=== PATIENT | female | born 1930 | race Caucasian/White ===

== ENCOUNTER 2016-09-28 | Outpatient (CLI) | payer MEDICARE, OTHER | END 2016-09-28 14:01 | disposition home or self-care (01) ==

== ENCOUNTER 2016-12-19 14:30 | Outpatient (CLI) | payer MEDICARE, OTHER | END 2016-12-19 14:31 | disposition home or self-care (01) | DX: Z51.5 Encounter for palliative care (principal); M16.11 Unilateral primary osteoarthritis, right hip; F03.91 Unspecified dementia, unspecified severity, with behavioral disturbance; M62.81 Muscle weakness (generalized); R53.81 Other malaise; Z79.891 Long term (current) use of opiate analgesic; Z91.81 History of falling; Z66 Do not resuscitate; R32 Unspecified urinary incontinence; G62.9 Polyneuropathy, unspecified ==

== ENCOUNTER 2017-04-20 11:15 | Outpatient (CLI) | payer MEDICARE, OTHER ==
--- NOTE | 2017-04-20 21:19 | PROVIDER PROGRESS NOTE ---
Palliative Care Follow Up - Referral Referring Provider: Dr. Kuldeep Villar Time of Visit: 11:15-11:45 Referral setting: Home (Patient is seen in her home setting secondary to it is a taxing and considerable effort to leave the home related to her dementia, agrophobia, and right hip pain) Referral Reason: Dementia with behavioral disturbances - Information Sources History obtained from: Patient, Family (daughter Tammy) Exam limitations: Clinical condition (patient with severe dementia, confabulates and no STM) - History of Present Illness Update Brief HPI Update: This is an 86-year-old woman with progressive severe dementia with ongoing behavioral disturbances, her dementia is noted to be vascular in origin. Her neuropsychiatric behaviors include irritability, paranoia, and agitation, as well as often being uncooperative and caregiving tasks. She is managed on Seroquel 25 mg 1 tab in the a.m. and 1 tab in the evening with a half a tab added every other evening. Her daughter does use the lorazepam 0.5 mg for breakthrough agitation and uses this about twice a week. She also has long- standing degenerative joint disease, resulted in severe pain a bone on bone in her right hip, for which she is managed with her fentanyl 12 mcg patch. She uses oxycodone 5 mg for breakthrough pain about 2 times a week. She is continued to maintain her weight, has had no further falls, and spends a majority of her time in her hospital bed. She is able to ambulate short distances with her walker, and does spend some time in her living room recliner. She herself denies depression, anxiety, or constipation. He does have some delusions, as she perceives her daughter is still in school, and that she continues to work in the garden. Social History - Living Situation Living arrangement: At home Living Situation: With family (her daughter is her interactive multimedia designer caregiver, she has two times a week she gets a break, the long term acute care registered nurse care insurance has since run out. Patient's sister Yaneth manages finances and care needs from [facility]. Daughter would very much like a respite break, but minimal other resources to access) Medications/Allergies - Medications Home Medications: Ambulatory Orders Medication Instructions Recorded Confirmed LORazepam [Ativan] 0.5 mg ORAL Q6HR PRN 04/01/16 Levothyroxine [Synthroid] 50 mg ORAL 04/01/16 QUEtiapine [SEROquel] 1 tab ORAL BID 04/01/16 04/20/17 Acetaminophen 650 mg PO Q6HR PRN 04/20/17 04/20/17 Celecoxib [Celebrex] 200 mg PO DAILY 04/20/17 04/20/17 Cholecalciferol (Vitamin D3) 2,000 unit PO DAILY 04/20/17 04/20/17 [Vitamin D3] Docusate Sodium 100 mg PO BID 04/20/17 04/20/17 Metoprolol Tartrate 12.5 mg PO BID 04/20/17 04/20/17 Multivitamin Gummy 1 tab PO DAILY 04/20/17 fentaNYL 12 MCG PATCH [Duragesic 12 mcg TOP DAILY 04/20/17 04/20/17 12mcg patch] oxyCODONE [Roxicodone] 5 mg PO Q6HR PRN 04/20/17 04/20/17 - Allergies Allergies/Adverse Reactions: Allergies Allergy/AdvReac Type Severity Reaction Status Date / Time iodine Allergy Unknown Unknown Verified 04/20/17 21:38 Review of Systems - Constitutional Constitutional: reports: Fatigue, Weakness - Eyes Eyes: reports: Vision loss - Ears, Nose & Throat Ears, Nose & Throat: reports: Hearing loss - Cardiovascular Cariovascular: reports: Decr. exercise tolerance. denies: Palpitations, Chest pain, Orthopnea - Respiratory Respiratory: reports: SOB with exertion. denies: Cough, SOB at rest - Gastrointestinal Gastrointestinal: denies: Abdominal pain, Constipation, Nausea, Reflux/heartburn - Genitourinary Genitourinary: reports: Incontinence - Musculoskeletal Musculoskeletal: reports: Stiffness, Limited range of motion (right hip), Muscle weakness - Integumentary Integumentary: reports: Dryness - Neurological Neurological: reports: General weakness, Memory problems, Abnormal gait - Psychiatric Psychiatric: reports: Delusions, Other (irritability; agitation;) - Endocrine Endocrine: reports: Other (hypothyroidism) - Hematologic/Lymphatic Hematologic/Lymphatic: denies: Recurrent infections - All Other Systems All Other Systems: reports: Reviewed and negative Physical Examination - Vital Signs Temperature: 98 C Pulse Rate: 74 Respiratory Rate: 18 O2 Saturation: 95 (ra at rest) Blood Pressure: 102/64 - Physical Exam General Appearance: positive: No acute distress Eyes Bilateral: positive: Normal inspection ENT: positive: No signs of dehydration Neck: positive: No JVD, Trachea midline Respiratory: positive: Breath sounds nml (diminished left lower lobe) Cardiovascular: positive: Regular rate & rhythm Abdomen: positive: Non-tender, Nml bowel sounds, No distention Skin: positive: Pallor, Dryness, Other (long toe nails). negative: Rash Extremities: positive: No pedal edema Neurologic/Psychiatric: positive: Mood/affect nml, Disoriented to time, Weakness (able to speak in full sentences; confabulated activities; STM poor recall; very much into social graces) Palliative Care - POLST Patient has POLST: Yes POLST Status: DNR, Comfort Measures Pain: Pain unchanged, Location (right hip; managed with current regimen) Drowsiness: Moderate (4-6) (sleeping more during the day; sleeps through night; not distressed) Nausea: None Anxiety: None, Comment (ezer reports days agitation and "mean" and uncooperative; redirects or leaves and comes back; sometimes will need to premedicate with lorazepam for new caregivers to not be "fired") Dyspnea: Mild (1-3) (with activity only) Anorexia: None Insomnia: Sleeps well Constipation: No, Opoid induced, Managed Feelings of wellbeing/Perceived Quality of Life: Comment (patient perceives thing arae "just fine") Performance Status: patient continues to refuse bathing; Tammy will give her spit bath every three days with patch change; patient washes "privates" Tammy attempts to wash regularly. Patient will often refuse to change depends, but is at least wearing them now which is improvement - Palliative Care Discussion: Surrogate decision maker- Yaneth Arthur (twin sister) [phone]. POLST completed with sister, in home on counter. Tammy is day to day decision maker for care. Discussed with daughter patient's current condition, she does appear somewhat stable, no further falls, weight loss, though there is some noted functional decline. Reviewed and preparing for the next phase, patient could have extended life expectancy of months to years, but with her advanced age and comorbidities still at risk for an acute event particularly if she has a severe fall. Currently, I can feel things are going fairly well, she would like some more rested, but is committed to keeping her mother at home per her mother's wishes. Did encourage, for her to come with some plan B., if she were to have herself health event or unable to continue with caregiving duties. Impression and Recommendations - Palliative Care Impression: This is an 86-year-old woman with severe vascular dementia, ongoing behavioral disturbances with irritability, paranoia, intermittent confusion and mood lability. She is currently managed on her regimen with minimal need for breakthrough medications, and no updates to care plan made. Her right hip pain is well controlled on that and all Celebrex and her oxycodone for breakthrough pain. Her current caregiving situation, though stressful for her daughter, is meeting the needs for both the daughter and the patient. Recommendations/Counseling Done: 1. Dementia with behavioral disturbances. Counseling to daughter regarding anticipatory guidance of disease process, management of behaviors, review of current regimen, agreed no changes needed at this time. 2. Right hip pain secondary to severe DJD. Currently managed to both patient and daughters satisfaction, new Rx for Fentanyl 12 mcg patches, and oxycodone 5 mg # 60 tab provided. 3. Advanced care planning. Daughter declined further need to meet with [facility] currently, will call if needed. Does admit does not have a plan if something were to happen to her as CG, encouraged to talk to Yaneth about this. POLST in place, goal defined to keep patient in home setting for as long as possible. Time Spent: Time spent 30 minutes with greater than 50% done in counseling on opioid/ dementia symtpoms and anticipatory guidance.
== END 2017-04-20 11:16 | disposition home or self-care (01) ==
LOC: PC 11:15
PROVIDERS: ATTEND Nurse Practitioner Adult Health
DX: Z51.5 Encounter for palliative care (principal); F01.51 Vascular dementia, unspecified severity, with behavioral disturbance; M16.11 Unilateral primary osteoarthritis, right hip; F40.00 Agoraphobia, unspecified; Z79.891 Long term (current) use of opiate analgesic; Z66 Do not resuscitate; Z91.81 History of falling; Z79.1 Long term (current) use of non-steroidal anti-inflammatories (NSAID)
CPT/HCPCS: 99348

== ENCOUNTER 2017-07-26 17:25 | Outpatient (CLI) | payer MEDICARE, OTHER ==
--- NOTE | 2017-07-26 17:30 | CONSULTATION NOTE ---
Palliative Care Follow Up - Referral Referring Provider: Kuldeep Villar MD Time of Visit: 3729-1826 Referral setting: Home Referral Reason: Dementia with behavioral disturbances - Information Sources History/Review of Systems obtained from: Family (daughter Tammy) Exam limitations: Clinical condition - History of Present Illness Update Brief HPI Update: This is a 86-year-old woman with progressive severe dementia with ongoing behavioral disturbances, her dementia is noted to be vascular in origin. She does have neuropsychiatric behaviors including irritability, paranoia, delusions , and agitation. She has continued to have functional decline, is spending more time in bed, though has no obvious weight loss. Her daughter Tammy, is her main caregiver. She uses Lorazepam 0.5 mg for breakthrough agitation usually about 2-3 times a week. She also has long-standing severe degenerative joint disease with severe pain in her right hip [id number], which is managed with fentanyl 12 mcg patch. She continues to maintain her weight, has had no falls, does does spend majority of her time in her hospital bed. She has had no skin breakdown. She is still able to ambulate short distances with her walker. She herself denies depression and/or anxiety. She does present with delusions that she perceives her self as working in the yard, fixing meals, and decorating the house for [employer]. Social History - Living Situation Living arrangement: At home (Tammy her daughter is her main caregiver. Her oversight is her patient's sister Yaneth. I am she has gotten some caregiving relief with a friend, and was able to take her car trip. Finances continue to be quite stressful as far as being able to supplement respite for Tammy.) Living Situation: With family Medications/Allergies - Medications Home Medications: Ambulatory Orders Medication Instructions Recorded Confirmed LORazepam [Ativan] 0.5 mg ORAL Q6HR PRN 04/01/16 Levothyroxine [Synthroid] 50 mg ORAL 04/01/16 QUEtiapine [SEROquel] 25 mg ORAL BID 04/01/16 04/20/17 Acetaminophen 650 mg PO Q6HR PRN 04/20/17 04/20/17 Celecoxib [Celebrex] 200 mg PO DAILY 04/20/17 04/20/17 Cholecalciferol (Vitamin D3) 2,000 unit PO DAILY 04/20/17 04/20/17 [Vitamin D3] Docusate Sodium 100 mg PO BID 04/20/17 04/20/17 Metoprolol Tartrate 12.5 mg PO BID 04/20/17 04/20/17 Multivitamin Gummy 1 tab PO DAILY 04/20/17 fentaNYL 12 MCG PATCH [Duragesic 12 mcg TOP DAILY 04/20/17 04/20/17 12mcg patch] oxyCODONE [Roxicodone] 5 mg PO Q6HR PRN 04/20/17 04/20/17 - Allergies Allergies/Adverse Reactions: Allergies Allergy/AdvReac Type Severity Reaction Status Date / Time iodine Allergy Unknown Unknown Verified 04/20/17 21:38 Review of Systems - Constitutional Constitutional: reports: Fatigue, Other (unknown) - Eyes Eyes: reports: Vision loss - Ears, Nose & Throat Ears, Nose & Throat: reports: Hearing loss - Gastrointestinal Gastrointestinal: reports: Good appetite - Genitourinary Genitourinary: reports: Incontinence - Musculoskeletal Musculoskeletal: reports: Limited range of motion (left hip), Assistive devices (up for short distances with walker; spends most of time in bed) - Integumentary Integumentary: reports: Dryness - Neurological Neurological: reports: General weakness, Memory problems - Psychiatric Psychiatric: reports: Delusions, Behavior disturbances (can be very irritable and verbally abusive at times to daughter; noncooperative) - Endocrine Endocrine: reports: Intolerance to cold - Hematologic/Lymphatic Hematologic/Lymphatic: denies: Recurrent infections - All Other Systems All Other Systems: reports: Reviewed and negative Physical Exam - Vital Signs Pulse Rate: 60 Respiratory Rate: 18 Blood Pressure: 102/64 - Physical Exam General Appearance: positive: No acute distress, Lethargic Eyes Bilateral: positive: Normal inspection ENT: positive: No signs of dehydration Neck: positive: Trachea midline Cardiovascular: positive: Regular rate & rhythm Respiratory: positive: Breath sounds nml Abdomen: positive: Non-tender, Soft, Nml bowel sounds Skin: positive: Pallor, Dryness Extremities: positive: No pedal edema, Other (limited rom left hip) Neurologic/Psychiatric: positive: Mood/affect nml, Disoriented to person, Disoriented to place, Disoriented to time, Weakness, Slurred/abnml speech Palliative Care - POLST Patient has POLST: Yes POLST Status: DNR, Comfort Measures Pain: Pain unchanged, Location (left hip), Comment (some increase with weather changes;) Drowsiness/Sedation: Moderate (4-6) (sleeping more) Nausea: None Depression: None Anxiety: Mild (1-3) Dyspnea: None Anorexia: Mild (1-3) Sleep: Sleeps well Constipation: No, Managed Feelings of wellbeing/Perceived Quality of Life: Fair, Acceptable, No change Performance Status: Patient continues to refuse bathing, Tammy does give her spit bath every few days with patch change. Her support caregiver does have more success at times with personal care. They were able to cut her nails. Patient often will refuse to change depends, can be problematic particularly when she has been incontinent of bowel. She is walking from her bedroom to the bathroom, as well as to the living room with standby assist. - Palliative Care Discussion: Surrogate decision maker/JUNIOR MALHOTRA (twin sisters and ([phone]. [facility] [facility] is completed with DNAR and comfort measures only. Discussed with daughter current care plan, still want to try and keep patient at home, and patient does have episodes where her behavior is distressing for her daughter, but they do managed to redirect. Concerns continue regarding finances, that would be much more expensive to have patient placed. At this point in time Tammy is fine with current care plan and does not need further support. She does know the medical palliative care social media assistant is available if needed. She is managing to get to her orthodoxy group. Patient herself presents is quite cooperative today, she reports "I do as little as possible", "got it pretty easy", and "never been bored "and is seeming pretty content. Her care needs are being met, she has had no falls or infections. She does present as a FAST 6D. Impression and Recommendations - Palliative Care Impression: This is a 86-year-old woman with severe vascular dementia, ongoing behavioral disturbances with neuropsychiatric behaviors of irritability, paranoia, delusions, and mood lability. She is currently managed on her regimen with minimal need for breakthrough medications. No updates to care plan made. Her right hip pain is well controlled on fentanyl, Celebrex and her oxycodone for breakthrough pain. She is getting her care needs met, Tmamy still is committed to keeping her at home. Recommendations/Counseling Done: 1. Dementia with behavioral disturbances. Peroration currently managed on her regimen, counseling the daughter regarding anticipatory guidance, management of behaviors, review of current regimen and agreement no changes needed at this time. 2. Right hip pain secondary to severe [id number] DJD. Currently managed with fentanyl, Celebrex, breakthrough oxycodone. New Rx for fentanyl 12 mcg patches was provided. 3. Advanced care planning. Daughter currently feels patient's needs are being met, declines meet with [facility]. She is getting some respite from a friend. [facility] is in place and goals are defined is keeping patient at home and no further hospitalizations. When patient does have declined transitioning to hospice. Time Spent: 30 minutes with greater than 50% of this done in counseling regarding management of patient's neuropsychiatric behaviors, pain, and anticipatory guidance
== END 2017-07-26 17:26 | disposition home or self-care (01) ==
LOC: PC 17:25
PROVIDERS: ATTEND Nurse Practitioner Adult Health
DX: Z51.5 Encounter for palliative care (principal); M16.11 Unilateral primary osteoarthritis, right hip; M25.551 Pain in right hip; R45.1 Restlessness and agitation; F99 Mental disorder, not otherwise specified; F22 Delusional disorders; Z79.891 Long term (current) use of opiate analgesic; R32 Unspecified urinary incontinence; M62.81 Muscle weakness (generalized); Z66 Do not resuscitate
CPT/HCPCS: 99348

== ENCOUNTER 2017-09-26 08:00 | Outpatient (CLI) | payer MEDICARE, OTHER ==
[2017-09-26 18:59] LABS: BASOPHILS % (AUTO) 0.4 %; EOSINOPHILS # (AUTO) 0.1 10^3/uL (0.0-0.7); EOSINOPHILS % (AUTO) 2.1 %; HGB - HEMOGLOBIN 12.2 g/dL (12.0-16.0); LYMPHOCYTES # (AUTO) 1.7 10^3/uL (1.5-3.5); LYMPHOCYTES % (AUTO) 32.3 %; MEAN CORPUSCULAR HGB CONC 33.8 g/dL (32.0-36.0); MEAN CORPUSCULAR VOLUME 94.7 fL (81.0-99.0); MEAN PLATELET VOLUME 8.3 fL (7.9-10.8); MONOCYTES # (AUTO) 0.4 10^3/uL (0.0-1.0); MONOCYTES % (AUTO) 6.8 %; NEUTROPHILS # (AUTO) 3.1 10^3/uL (1.5-6.6); NEUTROPHILS % (AUTO) 58.4 %; PLT - PLATELET COUNT 191 10^3/uL (130-450); RED BLOOD COUNT 3.82 10^6/uL (4.20-5.40); RED CELL DISTRIBUTION WIDTH 12.9 % (12.0-15.0); WHITE BLOOD COUNT 5.3 x10^3/uL (4.8-10.8)
[2017-09-26 19:20] LABS: ALBUMIN 3.2 g/dL (3.2-5.5); ALBUMIN/GLOBULIN RATIO 1.3 (1.0-2.2); ALKALINE PHOSPHATASE 58 IU/L (42-121); ALT ALANINE AMINOTRANSFERASE < 10 IU/L (10-60); AST ASPARTATE AMINOTRANSFERASE 19 IU/L (10-42); BILIRUBIN,TOTAL 0.5 mg/dL (0.2-1.0); BUN - BLOOD UREA NITROGEN 16 mg/dL (6-20); CALCIUM 8.6 mg/dL (8.5-10.3); CARBON DIOXIDE - CO2 25 mmol/L (21-32); CHLORIDE 105 mmol/L (101-111); CREATININE 0.7 mg/dL (0.4-1.0); GFR - MDRD 79 (>89); GLUCOSE 89 mg/dL (70-100); SODIUM 139 mmol/L (135-145); TOTAL PROTEIN 5.6 g/dL (6.7-8.2)
[2017-09-26 19:27] LABS: T4 (THYROXINE) 6.59 ug/dL (6.09-12.23)
[2017-09-26 19:31] LABS: THYROID STIMULATING HORMONE 1.79 uIU/mL (0.34-5.60)
== END 2017-09-26 08:01 | disposition home or self-care (01) ==
LOC: LAB.R 08:00
PROVIDERS: ATTEND Nurse Practitioner Adult Health
DX: E03.9 Hypothyroidism, unspecified (principal); Z79.899 Other long term (current) drug therapy
CPT/HCPCS: 80053; 84436; 84443; 85025

== ENCOUNTER 2017-09-26 13:00 | Outpatient (CLI) | payer MEDICARE, OTHER ==
--- NOTE | 2017-09-27 14:11 | CONSULTATION NOTE ---
Palliative Care Follow Up - Referral Referring Provider: Dr. Get Villar Time of Visit: [id number] Referral setting: Home (Patient seen her home setting secondary considerable and taxing effort to leave the home, patient has severe dementia and is homebound.) Referral Reason: Dementia with behavioral disturbances - Information Sources Records reviewed: Previous records reviewed History/Review of Systems obtained from: Family (Daughter Tammy providing most of the history including ROS) Exam limitations: Clinical condition (Patient demented, confabulates, is unable to participate in exam.) - History of Present Illness Update Brief HPI Update: This is an 87-year-old woman with progressive severe dementia with ongoing behavioral disturbances, her dementia is noted to be vascular in origin. She does have neuropsychiatric behaviors including irritability, paranoia, delusions , and agitation. She does continue to have functional decline, she is eating and drinking and there is no discernible weight loss, she does sleep more than she has in the past. She also has long-standing severe degenerative joint disease with severe pain in her right hip, with [id number] which is managed with fentanyl 12 mcg patch. She has had not any further falls, there was a call last month with concern for dark stools, this is since resolved. Patient presents with no skin breakdown, and has avoided any flu or colds. Daughter reports using the Lorazepam for breakthrough agitation, she is on baseline Seroquel. She is reporting needing to use that several times a week, but is effective intervention. Social History - Living Situation Living arrangement: At home Living Situation: With family (Daughter Tammy is her caregiver, she does have a live-in friend who is now assisting with her care, this does help in patients behaviors escalate. Patient's sister is her DPO a, and manages finances.) Medications/Allergies - Medications Home Medications: Ambulatory Orders Medication Instructions Recorded Confirmed LORazepam [Ativan] 0.5 mg ORAL Q6HR PRN 04/01/16 Levothyroxine [Synthroid] 50 mg ORAL 04/01/16 QUEtiapine [SEROquel] 25 mg ORAL QDBREAKFAST 04/01/16 09/27/17 Acetaminophen 650 mg PO Q6HR PRN 04/20/17 04/20/17 Celecoxib [Celebrex] 200 mg PO DAILY 04/20/17 04/20/17 Cholecalciferol (Vitamin D3) 2,000 unit PO DAILY 04/20/17 04/20/17 [Vitamin D3] Docusate Sodium 100 mg PO BID 04/20/17 04/20/17 Metoprolol Tartrate 12.5 mg PO BID 04/20/17 09/27/17 Multivitamin Gummy 1 tab PO DAILY 04/20/17 09/27/17 fentaNYL 12 MCG PATCH [Duragesic 12 mcg TOP DAILY 04/20/17 09/27/17 12mcg patch] oxyCODONE [Roxicodone] 5 mg PO Q6HR PRN 04/20/17 09/27/17 Mecobalamin [B-12] 1 tab PO DAILY 09/27/17 09/27/17 Polyethylene Glycol 3350 [Miralax] 8.5 gm PO DAILY 09/27/17 09/27/17 QUEtiapine [SEROquel] 37.5 mg PO ACHS 09/27/17 09/27/17 - Allergies Allergies/Adverse Reactions: Allergies Allergy/AdvReac Type Severity Reaction Status Date / Time iodine Allergy Unknown Unknown Verified 04/20/17 21:38 Review of Systems - Constitutional Constitutional: reports: Fatigue (sleeping more about 75% of day), Weakness, Weight stable - Eyes Eyes: reports: Vision loss - Ears, Nose & Throat Ears, Nose & Throat: reports: Hearing loss, Sore throat (c/o to daughter earlier today; denied at visit) - Cardiovascular Cardiovascular: reports: Decr. exercise tolerance. denies: Chest pain - Respiratory Respiratory: denies: Cough - Gastrointestinal Gastrointestinal: reports: Constipation (controlled on current regimen), Good appetite. denies: Reflux/heartburn - Genitourinary Genitourinary: reports: Incontinence - Musculoskeletal Musculoskeletal: reports: Limited range of motion (right hip; still ambulating short distances to BR), Assistive devices (uses rolling 4WW) - Integumentary Integumentary: reports: Dryness - Neurological Neurological: reports: General weakness, Memory problems (confabulates; not orientated; sometimes does not recognize daughter) - Psychiatric Psychiatric: reports: Depression, Delusions, Behavior disturbances - Endocrine Endocrine: reports: Hypothyroidism, Intolerance to cold - Hematologic/Lymphatic Hematologic/Lymphatic: denies: Recurrent infections - All Other Systems All Other Systems: reports: Reviewed and negative Physical Exam - Vital Signs Temperature: 97.8 C Pulse Rate: 72 Respiratory Rate: 18 O2 Saturation: 98 (ra @ rest) Blood Pressure: 92/62 - Physical Exam General Appearance: positive: No acute distress, Lethargic (had received lorazepam earlier for bathing) Eyes Bilateral: positive: Normal inspection ENT: positive: No signs of dehydration Neck: positive: No JVD, Trachea midline Cardiovascular: positive: Regular rate & rhythm Respiratory: positive: Breath sounds nml, Diminished in bases Abdomen: positive: Non-tender, Soft, Nml bowel sounds Skin: positive: Pallor, Bruising (left back of hand) Neurologic/Psychiatric: positive: Mood/affect nml, Disoriented to person, Disoriented to place, Disoriented to time, Weakness Palliative Care - POLST Patient has POLST: Yes POLST Status: DNR, Comfort Measures Pain: Location (Pain in right hip, unable to quantify from patient. She reports it does worsen with the weather changes. It does limit her ambulation.) Constipation: Yes, Opoid induced, Managed Performance Status: Patient spends majority of her time in her hospital bed, she does ambulate out to the living room at times. She is still able to self feed, the daughter and her friend to try and bathe her at least weekly, patient gets quite irritable and agitated with bathing - Palliative Care Discussion: Reviewed goals of care with daughter Tammy, she does feel like they are currently coping though she does have days which makes it very difficult with her behavioral disturbances. The goal is still to keep her at home, she has had some caregiver relief with her friends staying. She is trying to take care of herself. Patient has had some decline but nothing significant. Results - Lab Results Lab and Imaging Results: Labs drawn for hypothyroidism, CBC and CMP in left antecubital without difficulty.[facility] [place] Findings within normal limits; no changes made to medications, follow up with daughter done. Impression and Recommendations - Palliative Care Impression: This is an 87-year-old woman with severe vascular dementia, ongoing behavioral disturbances with neuropsychiatric behaviors of irritability, paranoia, delusions, and mood lability. She is currently managed on her regimen to daughter's satisfaction. Patient has had some decline, her daughter is doing a nice job of caring for her. Patient refuses to leave the home, so we will continue to provide palliative care support every 2-3 months. Recommendations/Counseling Done: 1. Dementia with behavioral disturbances. Patient currently managed on her regimen, continue to primary counselor daughter with anticipatory guidance, management of behaviors, review of current regimen and agreement no changes needed at this time. 2. Right hip pain secondary severe [id number] DJD. Currently managed with fentanyl 12 mcg, Celebrex 200 mg, and oxycodone for breakthrough medication. The only needing this a couple times a month. New Rx versus fentanyl 12 mcg patches was provided. 3. Advanced care planning.Tammy does present with caregiver fatigue, but she is getting some support from her current roommate. At this point in time there are no placement issues. [facility] is in place and goals are defined is keeping patient at home and no further hospitalizations, with transition to hospice when appropriate Time Spent: 30 minutes with greater than 50% of this done in counseling regarding symptom management, lab draw done [facility], and anticipatory guidance provided
== END 2017-09-26 13:01 | disposition home or self-care (01) ==
LOC: PC 13:00
PROVIDERS: ATTEND Nurse Practitioner Adult Health
DX: Z51.5 Encounter for palliative care (principal); F01.51 Vascular dementia, unspecified severity, with behavioral disturbance; M25.551 Pain in right hip; M16.11 Unilateral primary osteoarthritis, right hip; R45.4 Irritability and anger; F22 Delusional disorders; R45.1 Restlessness and agitation; Z79.891 Long term (current) use of opiate analgesic; R53.83 Other fatigue; M62.81 Muscle weakness (generalized); K59.03 Drug induced constipation; T40.2X5D Adverse effect of other opioids, subsequent encounter; Z66 Do not resuscitate
CPT/HCPCS: 99348

== ENCOUNTER 2017-12-12 12:55 | Outpatient (CLI) | payer MEDICARE, OTHER ==
--- NOTE | 2017-12-12 20:48 | CONSULTATION NOTE ---
Palliative Care Follow Up - Referral Referring Provider: Dr. Kuldeep Villar Time of Visit: [id number] Referral setting: Home (It is a taxing and considerable effort for the patient to leave the home, secondary to dementia and fatigue) Referral Reason: Dementia with behavioral disturbances/Failure to thrive - Information Sources Records reviewed: Previous records reviewed History/Review of Systems obtained from: Family (Tammy daughter and caregiver present; Manasa friend and support caregiver present at visit) Exam limitations: Clinical condition (patient confabulates; severe dementia) - History of Present Illness Update Brief HPI Update: This is a 87-year-old woman with progressive severe dementia and ongoing behavioral disturbances, dementia is noted to be vascular in origin. She does have neuropsychiatric behaviors including irritability, paranoia, delusions, and agitation. She does continue to have functional decline, is spending much more time in bed, up only occasionally to the bathroom with needing more assistance from sitting to standing, more sedentary and sleeping more overall. She is also had a decrease in oral intake over the last several weeks, not attributed to anything acute, has no fever chills, no signs or symptoms of urinary tract infection, no cough or signs of pneumonia. This is exhibited less interest, are managing to get a couple of boosted her, but does have discernible weight loss with temporal wasting, upper extremity wasting, and thinner through the abdomen. 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 She does have oxycodone 5 mg for breakthrough pain as needed, as she has been more bedbound, she has been more stiff and with discomfort but not needing significant amount of more pain medication. Her agitation is fairly well-controlled on the Seroquel, she only needs occasional Lorazepam, they have been able to manage with just reapproach and distraction for periods of agitation. Patient is quite cooperative, does appear to recognize me, though does not understand the context for which I am visiting. She does confabulate, talks about working, time spent in the garden, and being up and around. Social History - Living Situation Living arrangement: At home Living Situation: With family (Patient is cared for by her daughter Tammy, she is cared for her since 2010, has lived with her since 2011. She does have a friend Manasa, who is now living at the house which has helped immensely. Check his training is in caregiving, and has done a significant amount dementia care. She is providing care shifts Monday, and has been of big support for daughter as well as someone to problem solve with regarding behaviors.) Medications/Allergies - Medications Home Medications: Ambulatory Orders Medication Instructions Recorded Confirmed LORazepam [Ativan] 0.5 mg ORAL Q6HR PRN 04/01/16 12/12/17 Levothyroxine [Synthroid] 50 mg ORAL 04/01/16 QUEtiapine [SEROquel] 25 mg ORAL QDBREAKFAST 04/01/16 12/12/17 Celecoxib [Celebrex] 200 mg PO DAILY 04/20/17 12/12/17 Cholecalciferol (Vitamin D3) 2,000 unit PO DAILY 04/20/17 12/12/17 [Vitamin D3] Metoprolol Tartrate 12.5 mg PO DAILY 04/20/17 12/12/17 Multivitamin Gummy 1 tab PO DAILY 04/20/17 12/12/17 fentaNYL 12 MCG PATCH [Duragesic 12 mcg TOP DAILY 04/20/17 12/12/17 12mcg patch] oxyCODONE [Roxicodone] 5 mg PO Q6HR PRN 04/20/17 12/12/17 Mecobalamin [B-12] 1 tab PO DAILY 09/27/17 12/12/17 Polyethylene Glycol 3350 [Miralax] 8.5 gm PO DAILY 09/27/17 12/12/17 QUEtiapine [SEROquel] 37.5 mg PO ACHS 09/27/17 12/12/17 - Allergies Allergies/Adverse Reactions: Allergies Allergy/AdvReac Type Severity Reaction Status Date / Time iodine Allergy Unknown Unknown Verified 04/20/17 21:38 Review of Systems - Constitutional Constitutional: reports: Fatigue (sleeping more; spendsmost of time in bed), Poor appetite, Weight loss (no weights; temporal wasting; upper extremity thinner) - Eyes Eyes: reports: Vision loss - Ears, Nose & Throat Ears, Nose & Throat: reports: Hearing loss (mild) - Cardiovascular Cardiovascular: reports: Decr. exercise tolerance - Gastrointestinal Gastrointestinal: reports: Poor appetite, Early satiety. denies: Constipation - Genitourinary Genitourinary: reports: Incontinence - Musculoskeletal Musculoskeletal: reports: Joint pain (right hip severe DJD), Assistive devices ( only up about once a day with walker) - Integumentary Integumentary: reports: Dryness - Neurological Neurological: reports: General weakness, Memory problems (patient with STM issues; more confused; confabulates; less full sentences but quite social in her exchange) - Psychiatric Psychiatric: reports: Behavior disturbances (Daughter reports mood fluctuates; can be cooperative but also resistant to care and agitated) - Endocrine Endocrine: reports: Hypothyroidism - Hematologic/Lymphatic Hematologic/Lymphatic: denies: Recurrent infections - All Other Systems All Other Systems: reports: Reviewed and negative Physical Exam - Vital Signs Temperature: 97.3 C Pulse Rate: 100 Respiratory Rate: 18 O2 Saturation: 92 (ra @ rest) Blood Pressure: 94/62 - Physical Exam General Appearance: positive: No acute distress, Alert Eyes Bilateral: positive: Normal inspection, Other (small amount of discharge right eye; no redness) ENT: positive: No signs of dehydration Neck: positive: Nml inspection Cardiovascular: positive: Regular rate & rhythm Respiratory: positive: Breath sounds nml Abdomen: positive: Non-tender, Soft, Nml bowel sounds Skin: positive: Pallor. negative: Bruising, Pressure wound Extremities: positive: No pedal edema, Other (difficult getting from sitting to standing; max assist; able to ambulate few steps with waler and cueing) Neurologic/Psychiatric: positive: Disoriented to person, Disoriented to place, Disoriented to time, Weakness Palliative Care - POLST Patient has POLST: Yes POLST Status: DNR, Comfort Measures Pain: Pain unchanged, Location (right hip; fentanyl 12 mcg every 3 days; seldom needing breakthrough oxycodone) Sleep: Sleeps well Constipation: Yes, Opoid induced, Managed Feelings of wellbeing/Perceived Quality of Life: Fair, Worsening Performance Status: Patient is mostly bedbound, now really comes out to the living room to sit. She occasionally ambulates to the bathroom, she is bed bath now with assistance of caregiver. They were able to take her to a walk-in tub a couple times to be able to wash her hair. She is still able to self feed, no signs of choking or difficulty swallowing, but dislikes taking pills. I would put her at a PPS of 40 % - Palliative Care Discussion: Daughter concerned regarding ongoing decline of both functional and decreased intake. No acute signs or symptoms of infection, no recent falls, does appear to have weight loss, and may be mildly dehydrated. Counseling and anticipatory guidance given regarding the trajectory of the disease, expected continued decline, and reviewed and reiterated goals on comfort. Patient without any skin breakdown, is receiving excellent care, reassurance was provided. Counseling provided regarding the continuum of care, including the criteria for hospice, discussed patient could be within weeks or possibly even months, but continued to evaluate and simplify caregiving tasks. Patient's DPOAE is actually her sister CASSIUS Wolfe in home with D and a R and comfort measures. Impression and Recommendations - Palliative Care Impression: This is an 87-year-old woman with severe vascular dementia, ongoing behavioral disturbances, mitigated with the use of Seroquel. Patient has continued to have decline, now presenting with symptoms of weight loss, decreased intake, but no acute signs or symptoms of infection, falls, or skin breakdown. She is well cared for by her daughter. Palliative care to provide ongoing support until transition to hospice. Recommendations/Counseling Done: 1. Hypertension. Patient on metoprolol tartrate 12.5 mg twice daily, has missed multiple doses as holds for blood pressure less than 110, instructed to give daily in a.m. only for rate control, no further BPs to simplify caregiving and decrease patient irritation. If patient presents with dizziness are of concern and hold dosing. 2. Dementia with behavioral distress disturbances. Reviewed current behaviors and schedule, will continue with current regimen, no changes at this time. Counseling provided and reinforced behavioral approaches used in managing agitation/care resistance. 3. Right hip pain secondary severe [id number] DJD. Currently managed with fentanyl 12 mcg patch, Celebrex 200 mg daily, and oxycodone for breakthrough pain. Appears to be controlling pain at this point in time. No adjustments needed 4. Advanced care planning. Tammy is doing better with increased support from roommate Manasa, at this point in time no plans for placement. CASSIUS GOODEN in place , left message for DPO a regarding wanting to update karen who is her twin sister. Anticipatory guidance and counseling provided regarding threshold for transition to hospice, as well as goals of care. Time Spent: 45 minutes with greater than 50% of this done in counseling pituitary guidance, review of pain and symptom management. Addendum. Did speak with Karen LAURA [phone], [place]'s twin sister. Did give her an update of patient's ongoing decline, observations of her care, and plan at appropriate transition point to move on to hospice. She is in agreement with this. Karen herself, is of course her same age, and is hoping she will outlast her sister to be able to provide support and oversee her care.
== END 2017-12-12 12:56 | disposition home or self-care (01) ==
LOC: PC 12:55
PROVIDERS: ATTEND Nurse Practitioner Adult Health
DX: Z51.5 Encounter for palliative care (principal); I10 Essential (primary) hypertension; F01.51 Vascular dementia, unspecified severity, with behavioral disturbance; M16.11 Unilateral primary osteoarthritis, right hip; R62.7 Adult failure to thrive; Z79.891 Long term (current) use of opiate analgesic; M62.81 Muscle weakness (generalized); K59.03 Drug induced constipation; T40.2X5D Adverse effect of other opioids, subsequent encounter; Z66 Do not resuscitate
CPT/HCPCS: 99350

== ENCOUNTER 2018-01-01 13:10 | Outpatient (CLI) | payer MEDICARE, OTHER ==
--- NOTE | 2018-01-01 17:57 | CONSULTATION NOTE ---
Palliative Care Follow Up - Referral Referring Provider: Dr Kuldeep Garcia Time of Visit: 01/01/2018. 13:10 13:55 Referral setting: Home (Seen in home setting due to taxing and considerable effort required to leave the home due to dementia, fatigue and bed bound status. ) Referral Reason: Declining status, anorexia - Information Sources Records reviewed: Previous records reviewed History/Review of Systems obtained from: Patient, Family, Caregiver Exam limitations: Clinical condition (patient confabulates; severe dementia) - History of Present Illness Update Brief HPI Update: -87-year-old woman with progressive severe dementia and ongoing behavioral disturbances, dementia is vascular. -Neuropsychiatric behaviors include irritability, paranoia, delusions, and agitation. 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 -She continues to experience quite significant functional decline since previous palliative care visit 3 weeks ago. -She eats only a bite or two of food (melon, berries, yogurt), supplemented by Boost. -She is still able to drink fluids from a straw -- juices, water. -She is completely bed-bound, is unable to bear any weight and is no longer ambulatory, recently collapsed when attempting to get out of bed independently. -Most of her time is spent sleeping in a " position." She resists waking up. -New incontinence of bowel for the past several weeks. -No pressure wounds reported by daughter Tammy and Manasa, both of whom have personal and semi-professional experience as care givers. -Complains of chronic pain in hip, continues on 12mcg fentanyl patch, no longer using Celebrex because she can't swallow the pill. She uses oxycodone 5mg twice daily for breakthrough pain. -Hospice meets with goals of family: comfort and quality of life. Social History - Living Situation Living arrangement: At home Support System: Lives with daughter Tammy. Manasa, a non-family member, has been helping with caregiving. A 3rd caregiver, Hilaria, 72 years old, will also be helping out with caregiving, occasionally spending the night. Her twin sister, Yaneth, is her DPOA. She lives in [place]. Medications/Allergies - Medications Home Medications: Ambulatory Orders Medication Instructions Recorded Confirmed LORazepam [Ativan] 0.5 mg ORAL Q6HR PRN 04/01/16 12/12/17 Levothyroxine [Synthroid] 50 mg ORAL 04/01/16 QUEtiapine [SEROquel] 25 mg ORAL QDBREAKFAST 04/01/16 12/12/17 Celecoxib [Celebrex] 200 mg PO DAILY 04/20/17 12/12/17 Cholecalciferol (Vitamin D3) 2,000 unit PO DAILY 04/20/17 12/12/17 [Vitamin D3] Metoprolol Tartrate 12.5 mg PO DAILY 04/20/17 12/12/17 Multivitamin Gummy 1 tab PO DAILY 04/20/17 12/12/17 fentaNYL 12 MCG PATCH [Duragesic 12 mcg TOP DAILY 04/20/17 12/12/17 12mcg patch] oxyCODONE [Roxicodone] 5 mg PO Q6HR PRN 04/20/17 12/12/17 Mecobalamin [B-12] 1 tab PO DAILY 09/27/17 12/12/17 Polyethylene Glycol 3350 [Miralax] 8.5 gm PO DAILY 09/27/17 12/12/17 QUEtiapine [SEROquel] 37.5 mg PO ACHS 09/27/17 12/12/17 - Allergies Allergies/Adverse Reactions: Allergies Allergy/AdvReac Type Severity Reaction Status Date / Time iodine Allergy Unknown Unknown Verified 04/20/17 21:38 Review of Systems - Constitutional Constitutional: reports: Fatigue, Weakness, Poor appetite, Weight loss (no weights; temporal wasting; thin upper extremities (25cm L bicep), hips and buttocks bonier per caregiver report.) - Eyes Eyes: reports: Vision loss - Ears, Nose & Throat Ears, Nose & Throat: reports: Hearing loss, Postnasal drainage - Cardiovascular Cardiovascular: reports: Decr. exercise tolerance - Respiratory Respiratory: reports: Sputum production. denies: SOB at rest - Gastrointestinal Gastrointestinal: reports: Poor appetite, Early satiety, Other (incontinence of bowel). denies: Constipation - Genitourinary Genitourinary: reports: Incontinence - Musculoskeletal Musculoskeletal: reports: Stiffness, Muscle weakness, Joint pain (DGD R hip), Transfer issues - Neurological Neurological: reports: Memory problems (short term memory deficits) - Psychiatric Psychiatric: reports: Aggitation, Behavior disturbances - All Other Systems All Other Systems: reports: Reviewed and negative Physical Exam - Vital Signs Temperature: 96.8 F Pulse Rate: 92 O2 Saturation: 94 (room air) Blood Pressure: 100/60 - Physical Exam General Appearance: positive: No acute distress, Alert Eyes Bilateral: positive: No lid inflammation, Conjunctivae nml ENT: positive: No signs of dehydration Neck: positive: Trachea midline Cardiovascular: positive: Regular rate & rhythm Respiratory: positive: Chest non-tender, No respiratory distress, Other ( refused auscultation of lungs). negative: Wheezes Skin: positive: Pallor Extremities: positive: No pedal edema Neurologic/Psychiatric: positive: Disoriented to time, Weakness (bedbound) Palliative Care - POLST Patient has POLST: Yes POLST Status: DNR, Comfort Measures Pain: Pain unchanged Tiredness/Fatigue: Severe (7-10) Anorexia: Severe (7-10), Weight loss (no weights available) Performance Status: Steady decline for months with significant acceleration of decline in past 3 weeks. No longer weight bearing or ambulatory, she remains bedbound, sleeps most of the time, failure to thrive with severe anorexia and weight loss. FAST: 7c - Palliative Care Discussion: Tammy her daughter, and Manasa the other caregiver have noted significant decline in the past several weeks, and request Hospice support. There will be three of them (Hilaria, 72 years old will join them) to share care giving duties. Patient is eating very little, continues to lose weight, appetite and functionality. I spoke with the patient's twin sister on the phone, who is also her DPOA. She is in agreement to transition her to hospice and wants to visit her within the next week or two. She lives in [place] and needs to make arrangements for a friend or family member to drive her here. She asked how long the patient has; my estimate is weeks to months. Daughter Tammy expressed her opinion that giving morphine to hospice patients hastens . I provided education about this incorrect assumption and the usages of morphine for relief of end of life pain, agitation, SOA. Both patient and caregiver/friend Manasa express Jewish beliefs and values, and state they will pray about certain decisions and choices. They both have past experience with having had family members on Hospice, and it appears that their experiences have been positive overall. Impression and Recommendations - Palliative Care Impression: 87-year-old woman with advanced vascular dementia and history of behavioral disturbances. She continues to decline in function and strength and her anorexia is worsening and is eligible for hospice based on her decline and failure to thrive secondary to advanced dementia. Patient and family would benefit from transitioning to hospice for supporting of goals of care of comfort and quality of life. Recommendations/Counseling Done: Dementia with behavioral disturbances: Behaviors are stabilized. Continue quetiapine 25 mg in the morning and 37.5 mg in the evening Chronic hip pain: At baseline. No longer taking Celebrex, refusing/cannot swallow pill. Continue fentanyl 12 mcg patch and oxycodone 5 mg. Her daughter has been administering it twice a day, recommend increasing to 3-4 times a day for breakthrough pain. Hypertension: BP is 100/60. Patient is on metoprolol for rate control. Advanced care planning: Patient is DNR and comfort care. Recommend transition to hospice due to ongoing functional decline secondary to advancing dementia ( non-ambulatory, incontinent), failure to thrive and anorexia with weight loss. Time Spent: 45 minutes were spent with more than 50% of the time spent on counseling, education, anticipatory guidance, and coordination of care.
== END 2018-01-01 13:11 | disposition home or self-care (01) ==
LOC: PC 13:10
PROVIDERS: ATTEND Nurse Practitioner
DX: Z51.5 Encounter for palliative care (principal); F01.51 Vascular dementia, unspecified severity, with behavioral disturbance; G89.29 Other chronic pain; M25.559 Pain in unspecified hip; R62.7 Adult failure to thrive; R63.0 Anorexia; Z95.5 Presence of coronary angioplasty implant and graft; Z79.891 Long term (current) use of opiate analgesic; Z66 Do not resuscitate
CPT/HCPCS: 99349